=== PATIENT | male | born 1950 | race Two or more races ===

== ENCOUNTER 2018-07-01 23:39 | Emergency (ER) | payer OTHER ==
[~2018-07-01] VITALS: Ht 188 cm; Wt 137.9 kg
--- NOTE | 2018-07-01 23:39 | NUR ---
BIB [facility] HOME; FEVER, GEN WEAKNESS. PT IS TACHYCARDIC, HYPERTENSIVE, DIAPHORETIC, WITH 02 SATURATION AT 94% ON RA. PT IS ALERT AND ORIENTED X3 ABLE TO MAKE NEEDS KNOWN AND AMBULATE BUT WITH ASSISTANCE DUE TO UNDSTEADY GAIT. WILL CONTINUE TO MONITOR FOR ANY CHANGES DURING THE SHIFT.
--- NOTE | 2018-07-01 23:40 | NUR ---
ER MD [place] AT BEDSIDE FOR EVAL
[2018-07-01] MEDS ORDERED: HYDROMORPHONE INJ 2 MG/ML DISP.SYRIN ONE (23:59)
[2018-07-02] MEDS ORDERED: CEFTRIAXONE 1 G VIAL ONE
[2018-07-02] MEDS ORDERED: ASPIRIN 81 MG TAB.CHEW PO ONE
[2018-07-02] MEDS ORDERED: ACETAMINOPHEN ES 500 MG TABLET PO ONE
[2018-07-02] MEDS ORDERED: CEFTRIAXONE 1GM BAG (ER ONLY) 50 ML IV ONE
[2018-07-02] MEDS ORDERED: ASPIRIN 81 MG TAB.CHEW ONE
[2018-07-02] MEDS ORDERED: ACETAMINOPHEN ES 500 MG TABLET ONE
--- NOTE | 2018-07-02 | NUR ---
IV STARTED RAC 18G AND BLOOD SENT TO LAB WITH TIMBER CRUISER
--- NOTE | 2018-07-02 00:15 | NUR ---
RT AT BEDSIDE FOR ABG
[2018-07-02 00:20] LABS: BASOPHILS % (AUTO) 0.1 % (0.0-2.0); HEMATOCRIT 41 % (39-51); HEMOGLOBIN 12.8 g/dL (13.5-17.5); LYMPHOCYTES # (AUTO) 0.6 /CMM (0.8-4.8); LYMPHOCYTES % (AUTO) 3.8 % (20.0-44.0); MEAN CORPUSCULAR HEMOGLOBIN 25 PG (26.0-33.0); MEAN CORPUSCULAR HGB CONC 31 g/dl (31.0-36.0); MEAN CORPUSCULAR VOLUME 80 fL (80-96); MONOCYTES % (AUTO) 12.3 % (2.0-12.0); NEUTROPHILS # (AUTO) 13.5 /CMM (1.8-8.9); NEUTROPHILS % (AUTO) 83.8 % (43.0-81.0); PLATELET COUNT (AUTO) 223 /CMM (150-450); RDW COEFFICIENT OF VARIATION 15.6 (11.5-15.0); RED BLOOD CELL COUNT(AUTO) 5.14 MIL/uL (4.5-6.0); WHITE BLOOD COUNT (AUTO) 16.1 K/uL (4.3-11.0)
[2018-07-02 00:30] LABS: ABG BASE EXCESS -1.1 mmol/L; ABG OXYGEN SATURATION 93.7 % (92.0-98.5); ABG PCO2 27.9 mmHg (35.0-45.0); ABG PH 7.494 (7.350-7.450); ABG PO2 65.7 mmHg (75.0-100.0); AaDO2 50.6 mmHg; COHb 0.7 % (0.5-1.5); MetHb 0.4 % (0.0-1.5); O2Hb 92.7 % (94.0-97.0); SITE, ABG Left Radial; VENT MODE, BG room air
[2018-07-02 00:31] LABS: APPEARANCE,URINE SL CLOUDY (CLEAR); BILIRUBIN,URINE NEGATIVE (NEGATIVE); BLOOD, URINE 3+ Ery/uL (NEGATIVE); COLOR,URINE YELLOW (YELLOW); KETONES,URINE TRACE (NEGATIVE); LEUKOCYTE ESTERASE ,URINE NEGATIVE (NEGATIVE); NITRITE, URINE NEGATIVE (NEGATIVE); PH,URINE 5.5 (5.0-8.0); PROTEIN,URINE 2+ mg/dl (NEGATIVE); UGLUCOSE 3+ mg/dL (NEGATIVE); UROBILINOGEN,URINE 0.2 EU/dL (0.2)
[2018-07-02 00:43] LABS: CALCIUM, SERUM 8.8 mg/dL (8.5-10.1); CARBON DIOXIDE 21 mmol/L (21-32); CHLORIDE 95 mmol/L (98-107); CREATININE 1.9 mg/dL (0.6-1.3); GLUCOSE 277 mg/dL (74-106); POTASSIUM 3.7 mmol/L (3.5-5.1); SODIUM SERUM 131 mmol/L (136-145); TROPONIN I < 0.017 ng/mL (0.00-0.056); UREA NITROGEN, BLOOD 23 mg/dL (7-18)
[2018-07-02 00:45] LABS: BACTERIA,URINE Moderate /HPF (None Seen); WBC,URINE 81-100 /HPF (0-3)
[2018-07-02 00:46] LABS: SQUAMOUS EPITHELIAL CELL,UR Rare /HPF (None Seen); URINE AMORPHOUS URATE Few /HPF (None Seen)
[2018-07-02 00:48] LABS: INR 1.44 (0.87-1.13)
[2018-07-02 00:53] LABS: ALANINE AMINOTRANSFERASE 16 U/L (12-78); ALBUMIN 3.6 g/dL (3.4-5.0); ALKALINE PHOSPHATASE 78 U/L (46-116); ASPARTATE AMINOTRANSFERASE 15 U/L (15-37); B-TYPE NATRIURETIC PEPTIDE 2496 PG/ML (0-125); BILIRUBIN,DIRECT 0.3 mg/dL (0.0-0.2); BILIRUBIN,TOTAL 1.6 mg/dL (0.2-1.0); TOTAL PROTEIN, SERUM 7.8 g/dL (6.4-8.2)
[2018-07-02] MEDS ORDERED: IV NS 0.9% 1,000 ML BAG IV ONE (01:00)
--- NOTE | 2018-07-02 01:07 | NUR ---
PT OFF TO CT
--- NOTE | 2018-07-02 01:17 | NUR ---
PT BACK FROM CT
--- NOTE | 2018-07-02 02:41 | NUR ---
PATIENT NOTED TO BE ABLE TO COMMUNICATE BETTER WITH MORE ENERGY. WILL CONTINUE TO MONITOR FOR ANY CHANGES DURING THE SHIFT.
--- NOTE | 2018-07-02 04:44 | NUR ---
NUMBER FOR REPORT [phone] FOR [facility] ER. [facility] EDRP. MD [facility] ACCEPTING
--- NOTE | 2018-07-02 04:47 | NUR ---
[facility] [id number]
--- NOTE | 2018-07-02 04:55 | NUR ---
REPORT GIVEN TO DAVY ROMO RN
[2018-07-02] MEDS ORDERED: ONDANSETRON HCL/PF 4 MG/2 ML VIAL ONE (05:26)
[2018-07-02] MEDS ORDERED: TAMSULOSIN 0.4 MG CAP.SR.24H ONE (05:27)
[2018-07-02] MEDS ORDERED: HYDROMORPHONE 1 MG/1 ML DISP.SYRIN ONE (05:27)
[2018-07-02] MEDS ORDERED: TAMSULOSIN 0.4 MG CAP.SR.24H PO ONE (05:30)
[2018-07-02] MEDS ORDERED: HYDROMORPHONE 1 MG/1 ML DISP.SYRIN IV ONE (05:30)
[2018-07-02] MEDS ORDERED: ONDANSETRON HCL/PF - ER 4 MG/2 ML VIAL IV ONE (05:30)
[2018-07-02 05:42] VITALS: BP 169/84
--- NOTE | 2018-07-02 06:07 | NUR ---
REPORT GIVEN TO [facility] WIRELESS OPERATOR
== END 2018-07-02 06:09 | disposition short-term general hospital (02) ==
LOC: ER 23:41
DX: A41.9 Sepsis, unspecified organism (principal); R65.20 Severe sepsis without septic shock; N13.2 Hydronephrosis with renal and ureteral calculous obstruction; R94.31 Abnormal electrocardiogram [ECG] [EKG]; N39.0 Urinary tract infection, site not specified; I38 Endocarditis, valve unspecified; E11.9 Type 2 diabetes mellitus without complications; I10 Essential (primary) hypertension; E78.00 Pure hypercholesterolemia, unspecified
CPT/HCPCS: 36415; 36600; 71045; 71250; 74176; 76705; 80048; 80076; 81001; 83605 ×2; 83880; 84484; 85025; 85378; 85730; 87040 ×2; 87804 ×2; 93005; 96365; 96374; 96375; 99291; A4606; J0696; J1170; J2405 ×2; J7030; J7040; J7050; J7060; 81000-TC; 87086-TC; 87400; Z7610